=== PATIENT | male | born 1990 | race African-American/Black ===

== ENCOUNTER 2020-10-09 06:45 | Outpatient (CLI) | payer OTHER, MEDICARE, MEDICAID, SELFPAY ==
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
== END 2020-10-09 06:46 | disposition home or self-care (01) ==
PROVIDERS: PCP Internal Medicine; Referring Provider Plastic Surgery; Visit Provider Internal Medicine
DX: M65.311 Trigger thumb, right thumb (principal)
CPT/HCPCS: 73218

== ENCOUNTER 2021-01-09 13:07 | Outpatient (CLI) | payer OTHER, SELFPAY ==
--- NOTE | ~2021-01-09 | MR_ITS ---
EXAMINATION: MR hand RT wo con DATE: 01/09/2021 14:13 INDICATION: Right thumb pain with displaced right flexor tendon of the thumb. TECHNIQUE: Magnetic resonance imaging (MRI) of the right thumb was performed without intravenous cont rast. Sequences included axial, sagittal and coronal T1-weighted FSE, axial and sagittal T2-weighted FS FSE and coronal PD-weighted FS FSE. COMPARISON: 10/09/2020 FINDINGS: There is 30 degree hyperextension at the first interphalangeal joint with the first metacarpophalange al joint and 30 degrees of flexion. Again seen is mild osteoarthritis at the first and second metacar pophalangeal joints with unchanged mild cystic change at the radial margin of the articular surface a t the head of the first metacarpal and mild marrow edema at the radial aspect of the head of the seco nd metacarpal. Otherwise normal marrow signal. No fracture or pathologic marrow replacing process. Ph ysiologic amount of fluid in the joint space. Again seen is mild fusiform thickening of the flexor pollicis longus tendon at the level of the base of the first proximal phalanx without discrete tear. There is mild tenosynovitis extending along the flexor pollicis longus tendon along the length of the first proximal phalanx. There is increased sepa ration of the tendon from the palmar cortex at the base of the first metacarpal which measures up to 3 mm consistent with history of interval release of the A1 tenzin. The extensor tendons of the thumb as well as the visualized portion of the remaining extensor and flexor tendons of the hand are normal . The volar plate at the base of the first proximal phalanx appears to remain intact. Intrinsic muscu lature of the hand is normal. IMPRESSION: 1. Increased separation of the flexor pollicis longus tendon from the volar margin of the base of the first proximal phalanx which measures approximately 3 mm consistent with interval release of the A1 tenzin. 2. Mild fusiform thickening of the flexor pollicis longus tendon at this level consistent with mild t endinopathy without discrete tear. Reviewed, dictated and finalized at location A. IMPRESSION: 1. Increased separation of the flexor pollicis longus tendon from the volar mar gin of the base of the first proximal phalanx which measures approximately 3 mm consistent with interval release of the A1 tenzin. 2. Mild fusiform thickening of the flexor pollicis longus tendon at this level consistent with mild tendinopathy without discrete tear.
== END 2021-01-09 13:08 | disposition home or self-care (01) ==
PROVIDERS: PCP Internal Medicine; Visit Provider Plastic Surgery
DX: S66.011A Strain of long flexor muscle, fascia and tendon of right thumb at wrist and hand level, initial encounter (principal)
CPT/HCPCS: 73218